=== PATIENT | male | born 1950 | race Caucasian/White ===

== ENCOUNTER 2022-03-23 10:47 | Inpatient (IN) | payer MEDICARE ==
[~2022-03-23] VITALS: Ht 177.8 cm; Wt 117.1 kg
[2022-03-23 12:19] LABS: HEMOGLOBIN 16.8 gm/dl (14.0-17.5); RED BLOOD COUNT 5.32 M/UL (4.20-5.50); WHITE BLOOD COUNT 10.1 K/UL (4.5-11.0)
[2022-03-23 12:57] LABS: BUN/CREATININE RATIO 15 (0-10)
[2022-03-23] MEDS ORDERED: LISINOPRIL-HCT1 EAC1 PO (16:40)
[2022-03-23] MEDS ORDERED: ZOCOR40 MG PO (16:40)
[2022-03-23] MEDS ORDERED: FINASTERIDE5 MG PO (16:40)
[2022-03-23] MEDS ORDERED: CARVEDILOL12.5 MG PO (16:40)
[2022-03-23] MEDS ORDERED: VITAMIN D325 MC6 PO (16:41)
[2022-03-23] MEDS ORDERED: OMEGA-31000 MG PO (16:41)
--- NOTE | 2022-03-24 13:47 | NUR ---
LATE ENTRY 03/24/[address] CARR OF PTS ABDOMINAL PAIN AND DISCOMFORT WHILE HE IS ON THE FLOOR. 03/24/22 1000- NOTIFIED ANESTHESIOLOGIST OF PTS ABDOMINAL PAIN. 03/24/2022 1330- CARDIOLOGY PEST CONTROL OPERATOR IS HERE TO SEE PT AND IS MADE AWARE OF PTS ABDOMINAL PAIN AT THIS TIME.
--- NOTE | 2022-03-24 14:12 | NUR ---
CALLED DR CARR AND TOLD HIM ABOUT PTS BP AND ABDOMINAL PAIN. STATES, " I WILL COME SEE THE PATIENT."
--- NOTE | 2022-03-24 14:27 | NUR ---
DR CARR AT BEDSIDE.
--- NOTE | 2022-03-24 14:28 | NUR ---
DR. PRAKASH AT BEDSIDE
--- NOTE | 2022-03-24 15:46 | NUR ---
PT TAKEN TO CT WITH RN AND TECH VIA BEDPT TOLERATED WELL.
[2022-03-24 16:42] LABS: HEMOGLOBIN 17.6 gm/dl (14.0-17.5); RED BLOOD COUNT 5.52 M/UL (4.20-5.50)
[2022-03-24 16:47] LABS: WHITE BLOOD COUNT 13.7 K/UL (4.5-11.0)
[2022-03-24 17:00] LABS: BUN/CREATININE RATIO 24 (0-10)
[2022-03-25 02:39] LABS: HEMOGLOBIN 17.2 gm/dl (14.0-17.5); RED BLOOD COUNT 5.42 M/UL (4.20-5.50); WHITE BLOOD COUNT 14.7 K/UL (4.5-11.0)
[2022-03-25 03:04] LABS: BUN/CREATININE RATIO 21 (0-10)
[2022-03-26 03:34] LABS: WHITE BLOOD COUNT 11.1 K/UL (4.5-11.0)
[2022-03-26 03:42] LABS: HEMOGLOBIN 14.5 gm/dl (14.0-17.5); RED BLOOD COUNT 4.66 M/UL (4.20-5.50)
[2022-03-26 04:05] LABS: BUN/CREATININE RATIO 27 (0-10)
[2022-03-27] MEDS ORDERED: CARVEDILOL25 MG PO (17:28)
[2022-03-27] MEDS ORDERED: IPRAT-ALBUT 0.5-3 ML NEB (17:28)
[2022-03-27] MEDS ORDERED: POLYETHYLENE GL17 GM PO (17:28)
[2022-03-27] MEDS ORDERED: CEFDINIR300 MG PO (17:28)
[2022-03-27] MEDS ORDERED: ELIQUIS 5 MG TAB5 MG PO (17:28)
[2022-03-27] MEDS ORDERED: TYLENOL EXTRA500 MG PO (17:30)
[2022-03-27] MEDS ORDERED: OXYCODON-ACETA1 EAC1 PO (17:36)
[2022-03-27 19:44] LABS: RED BLOOD COUNT 4.48 M/UL (4.20-5.50); WHITE BLOOD COUNT 10.7 K/UL (4.5-11.0)
--- NOTE | 2022-03-28 22:06 | NUR ---
ATTEMPTED TO PLACE CPAP ON PATIENT. EXPLAINED IMPORTANCE OF WEARING. PATIENT AWARE AND VERBALIZED UNDERSTANDING. PATIENT WORE FOR 30 MINUTES THEN ASKED FOR IT TO BE REMOVED.
[2022-03-29] MEDS ORDERED: AMLODIPINE BESYL5 MG PO (08:41)
[2022-03-29] MEDS ORDERED: LISINOPRIL-HCT1 EAC2 PO (08:41)
--- NOTE | 2022-03-29 11:57 | NUR ---
REPORT TO [facility] TO LYLE RG.RELAYED ALL INFORMATION ABOUT SCRIPTS AND IV STILL IN PLACE. VERBALIZES UNDERSTANDING.
== END 2022-03-29 12:25 | DRG 480 ==
LOC: ER1 10:47 → CDU 14:30 → PROG CARE 14:57
PROVIDERS: Nurse Practitioner Family; Orthopaedic Surgery; Physician Assistant Medical; ADMIT Internal Medicine Infectious Disease
PROC: 5A09357 Assistance with Respiratory Ventilation, Less than 24 Consecutive Hours, Continuous Positive Airway Pressure (ICD-10-PCS; 2022-03-23)
PROC: B24BZZZ Ultrasonography of Heart with Aorta (ICD-10-PCS; 2022-03-25)
PROC: 5A09357 Assistance with Respiratory Ventilation, Less than 24 Consecutive Hours, Continuous Positive Airway Pressure (ICD-10-PCS; 2022-03-25)
PROC: 0QS704Z Reposition Left Upper Femur with Internal Fixation Device, Open Approach (ICD-10-PCS; principal; 2022-03-25 14:30)
PROC: 5A09357 Assistance with Respiratory Ventilation, Less than 24 Consecutive Hours, Continuous Positive Airway Pressure (ICD-10-PCS; 2022-03-28)
PROC: 5A09357 Assistance with Respiratory Ventilation, Less than 24 Consecutive Hours, Continuous Positive Airway Pressure (ICD-10-PCS; 2022-03-28)
DX: S72.012A Unspecified intracapsular fracture of left femur, initial encounter for closed fracture (principal); J18.9 Pneumonia, unspecified organism; I69.354 Hemiplegia and hemiparesis following cerebral infarction affecting left non-dominant side; Z20.822 Contact with and (suspected) exposure to COVID-19; K56.7 Ileus, unspecified; F11.20 Opioid dependence, uncomplicated; I10 Essential (primary) hypertension; I08.1 Rheumatic disorders of both mitral and tricuspid valves; N40.0 Benign prostatic hyperplasia without lower urinary tract symptoms; R32 Unspecified urinary incontinence; Z82.3 Family history of stroke; K59.00 Constipation, unspecified; W01.0XXA Fall on same level from slipping, tripping and stumbling without subsequent striking against object, initial encounter; E66.01 Morbid (severe) obesity due to excess calories; E78.5 Hyperlipidemia, unspecified; I48.91 Unspecified atrial fibrillation; Z79.01 Long term (current) use of anticoagulants; Y92.488 Other paved roadways as the place of occurrence of the external cause; Z88.0 Allergy status to penicillin; Z82.49 Family history of ischemic heart disease and other diseases of the circulatory system; Z96.82 Presence of neurostimulator; Z68.37 Body mass index [BMI] 37.0-37.9, adult
CPT/HCPCS: ECHO; 36415; 70450; 71045; 72125; 73502; 73552; 73700; 76000; 80048; 80053; 82550; 82553; 83605; 83735; 84439; 84443; 84484; 85025; 85027; 85610; 85730; 86850; 86900; 86901; 93005; 93306; 94640; 94660; 94664; 94760; 96374; 96375; 97110; 97110-GP-CQ; 97116-GP-CQ; 97162; 97166; 97530; 97530-GP-CQ; 97535; 99285; C1713; J0360; J0690; J1100; J2001; J2270; J2370; J2405; J2543; J2704; J2710; J2795; J3010; J3475; J7030; J7070; J7120; U0002